=== PATIENT | female | born 1960 | race Hispanic/Latino ===

== ENCOUNTER 2017-08-20 04:51 | Emergency (ER) | payer OTHER ==
[~2017-08-20] VITALS: Ht 157.5 cm; Wt 108.9 kg
--- OUTSIDE RECORDS SUMMARY | 2017-08-20 04:54 | XMS REPORT | Summary of Care ---
Author Author Suzie Soto M.A. Unknown Address Unknown Phone Unavailable Care Team Providers [employer] Name Role Phone RAPHAEL Ramirez, NAWAF Unavailable Unavailable JESSY Ramirez, KIERRA Unavailable Unavailable Unavailable Unavailable Functional Status Name Dates Details Functional status health issues are not documented Status: Name Dates Details Cognitive status health issues are not documented Status: Problems Name Dates Details Musculoskeletal neck pain (723.1, M54.2) Status: Active Lipoma of left lower extremity (214.1, D17.24) Status: Active Osteoarthritis of left foot (715.97, M19.072) Status: Active Calcific Achilles tendinitis of left lower extremity (727.82, M65.28) Status: Active Osteoarthritis of both knees, unspecified osteoarthritis type (715.96, M17.0) Status: Active Strain of right rotator cuff capsule, initial encounter (840.4, S46.011A) Status: Active Iliotibial band syndrome of left side (728.89, M76.32) Status: Active 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 Quantity: 50 RAPHAEL M.D., NAWAF * Start : 28-Apr-2014 Active Meloxicam 7.5 MG Oral Tablet TAKE 1 TABLET DAILY WITH FOOD. * Quantity: 30 Refills: 1 RAPHAEL Jmaes, NAWAF * Start : 28-Apr-2014 Active Duexis 800-26.6 MG Oral Tablet TAKE 1 TABLET 3 TIMES DAILY * Quantity: 90 Refills: 0 JESSY Ramirez, KIERRA * Start : 25-Mar-2016 Active Duexis 800-26.6 MG Oral Tablet TAKE 1 TABLET 3 TIMES DAILY * Quantity: 90 Refills: 1 JESSY Ramirez, KIERRA * Start : 16-May-2016 Active Duexis 800-26.6 MG Oral Tablet TAKE 1 TABLET 3 TIMES DAILY * Quantity: 90 Refills: 1 JESSY Ramirez, KIERRA * Start : 06-Jan-2017 Active Vitamin D3 66572 UNIT Oral Tablet TAKE 1 TABLET WEEKLY * Quantity: 20 Refills: 2 JESSY Abraham.Chaz, KIERRA * Start : 06-Jan-2017 Active Meloxicam 15 MG Oral Tablet TAKE 1 TABLET DAILY. * Quantity: 30 Refills: 0 JESSY Ramirez, KIERRA * Start : 10-Jul-2017 Active Cyclobenzaprine HCl - 10 MG Oral Tablet TAKE 1 TABLET AT BEDTIME NEEDED. * Quantity: 30 Refills: 0 JESSY Ramirez, KIERRA * Start : 10-Jul-2017 Active Allergies and Adverse Reactions Name Dates Details No Known Drug Allergies (Allergy) Status: Active Past Medical History Name Dates Details History of arthritis (V13.4, Z87.39) Status: Resolved History of asthma (V12.69, Z87.09) Status: Resolved History of hypertension (V12.59, Z86.79) Status: Resolved Procedures Procedure Dates Details History of Gallbladder surgery Completed Immunization Name Dates Details Immunizations not documented Family History Name Dates Details Family history of Allergy (995.3, T78.40XA) Comments: Family History Status: Active Family history of asthma (V17.5, Z82.5) Comments: Family History Status: Active Family history of malignant neoplasm (V16.9, Z80.9) Comments: Family History Status: Active Family history of cardiac disorder (V17.49, Z82.49) Comments: Family History Status: Active Social History Name Dates Details - Status: Name Dates Details Never smoker Vital Signs Date Test Result Details No Known Vitals to report Results Date Description Value Details Results not documented Plan of Care Name Dates Details Planned Observations Planned Goals not documented Planned Encounters Appointment; KIERRA JIMÉNEZ M.D. On: 21-Aug-2017 9:45 Appointment; AUGUSTIN BELTRAN On: 24-Aug-2017 11:00 Instructions Name Dates Details Instructions not documented Encounters Appointment; KIERRA JIMÉNEZ M.D. Encounter Diagnosis: Problem not documented On: 22-Feb-2016 10:00 Appointment; KIERRA JIMÉNEZ M.D. Encounter Diagnosis: Problem not documented On: 07-Mar-2016 9:45 Appointment; KIERRA JIMÉNEZ M.D. Encounter Diagnosis: Problem not documented On: 16-May-2016 10:15 Appointment; KIERRA JIMÉNEZ M.D. Encounter Diagnosis: Problem not documented On: 13-Jun-2016 10:15 Appointment; KIERRA JIMÉNEZ M.D. Encounter Diagnosis: Problem not documented On: 01-Aug-2016 11:00 Appointment; KIERRA JIMÉNEZ M.D. Encounter Diagnosis: Problem not documented On: 06-Jan-2017 9:30 Appointment; KIERRA JIMÉNEZ M.D. Encounter Diagnosis: Problem not documented On: 13-Feb-2017 10:00 Appointment; DEBBIE LAM M.D. Encounter Diagnosis: Problem not documented On: 25-Apr-2017 15:30 Appointment; DEBBIE LAM M.D. Encounter Diagnosis: Problem not documented On: 09-May-2017 9:30 Appointment; JT KENYON Encounter Diagnosis: Problem not documented On: 30-Jun-2017 9:00 Appointment; JT KENYON Encounter Diagnosis: Problem not documented On: 30-Jun-2017 9:00 Appointment; KIERRA JIMÉNEZ M.D. Encounter Diagnosis: Problem not documented On: 10-Jul-2017 9:15 Appointment; KIERRA JIMÉNEZ M.D. Encounter Diagnosis: Problem not documented On: 21-Aug-2017 9:45
--- OUTSIDE RECORDS SUMMARY | 2017-08-20 04:54 | XMS REPORT | Summary of Care ---
Author Author [facility] [place] Organization [facility] [place] Address Unknown Phone Unavailable Encounter [facility] Encntr_katherin([facility]) [id number] Date(s): 03/04/16 - 03/04/16 [facility] [place] [address] [place] [phone] Discharge Disposition: Home or Self Care Attending Physician: Alice Kulkarni MD Vital Signs No data available for this section Problem List No data available for this section Allergies, Adverse Reactions, Alerts No data available for this section Medications No data available for this section Results No data available for this section Immunizations No data available for this section Procedures No data available for this section Social History No data available for this section Assessment and Plan No data available for this section
--- OUTSIDE RECORDS SUMMARY | 2017-08-20 04:54 | XMS REPORT | Summary of Care ---
Author Author [facility] Address Unknown Phone Unavailable Encounter [facility] [email or web address]([facility]) [id number] Date(s): 07/14/16 - 08/12/16 [facility] Discharge Disposition: Home or Self Care Attending [...]
--- OUTSIDE RECORDS SUMMARY | 2017-08-20 04:54 | XMS REPORT | Summary of Care ---
Author Author [facility] Address Unknown Phone Unavailable Encounter [facility] Encntr_katherin([facility]) [id number] Date(s): 02/24/17 - 03/25/17 [facility] Discharge Disposition: Home or Self Care Attending [...]
--- OUTSIDE RECORDS SUMMARY | 2017-08-20 04:54 | XMS REPORT | Summary of Care ---
Author Organization Unknown Address Unknown Phone Unavailable Encounter [facility] [email or web address]([facility]) [id number] Date(s): 04/30/14 - 05/29/14 [facility] Discharge Disposition: Home Physician Attending: Arvin Saucedo MD Vital Signs No data available for [...]
--- OUTSIDE RECORDS SUMMARY | 2017-08-20 04:54 | XMS REPORT | Summary of Care ---
Author Author [facility] Address Unknown Phone Unavailable Encounter [facility] [email or web address]([facility]) [id number] Date(s): 06/14/16 - 07/13/16 [facility] Discharge Disposition: Home or Self Care [...]
[2017-08-20 06:07] VITALS: BP 156/82
[2017-08-20] MEDS ORDERED: IBUPROFEN 400 MG TAB PO ONE (06:15)
== END 2017-08-20 06:17 | disposition home or self-care (01) ==
LOC: FSED 04:51
DX: S50.11XA Contusion of right forearm, initial encounter (principal); W01.0XXA Fall on same level from slipping, tripping and stumbling without subsequent striking against object, initial encounter; Y93.01 Activity, walking, marching and hiking; Y92.512 Supermarket, store or market as the place of occurrence of the external cause
CPT/HCPCS: 72040; 99283

== ENCOUNTER 2020-10-19 17:36 | Emergency (ER) | payer OTHER ==
[~2020-10-19] VITALS: Ht 157.5 cm; Wt 108.9 kg
[2020-10-19 19:02] VITALS: BP 166/92
== END 2020-10-19 19:04 | disposition home or self-care (01) ==
LOC: FSED 17:53
DX: K59.00 Constipation, unspecified (principal); K64.4 Residual hemorrhoidal skin tags; M54.5 Low back pain
CPT/HCPCS: 99283

== ENCOUNTER 2024-11-19 22:12 | Emergency (ER) | payer OTHER ==
[~2024-11-19] VITALS: Ht 152.4 cm; Wt 119.3 kg
[2024-11-20] MEDS ORDERED: HYDROCHLOROTHIA25 MG PO (01:12)
[2024-11-20 01:19] VITALS: PULSE 99; RESP 18; TEMP 98.2
[2024-11-20 01:20] VITALS: BP 111/72; PULSE 99; RESP 18; TEMP 98.2; O2SAT 97
== END 2024-11-20 01:33 | disposition home or self-care (01) ==
LOC: FSED 11-20 00:43
DX: R06.02 Shortness of breath (principal); I10 Essential (primary) hypertension; E66.9 Obesity, unspecified; R94.31 Abnormal electrocardiogram [ECG] [EKG]
CPT/HCPCS: 71046; 80048; 84484; 85025; 85379; 93005; 99284

== ENCOUNTER 2024-11-25 17:39 | Inpatient (IN) | payer OTHER ==
[~2024-11-25] VITALS: Ht 165.1 cm; Wt 117.0 kg
[~2024-11-25 17:39] MED LIST: HYDROCHLOROTHIA25 MG PO
[2024-11-25 17:50] VITALS: PULSE 108; RESP 20; TEMP 98.2
[2024-11-25] MEDS ORDERED: SODIUM CHLORIDE 0.9% 100 ML ONE (18:50)
[2024-11-25] MEDS ORDERED: IOPAMIDOL 370 MG/ML 100 ML INFUS..BTL INJ ONE (18:50)
[2024-11-25] MEDS: ONDANSETRON HCL INJ 2MG/ML 2ML 2 MG/ML VIAL IV STA ×2 (19:11→22:53)
[2024-11-25] MEDS: SODIUM CHLORIDE 0.9% 1000ML 1,000 ML IV ONE (19:11)
[2024-11-25] MEDS ORDERED: Morphine 4mg INJECTION 4 MG/ML INJ IV PRN (23:15)
[2024-11-26] VITALS (11 sets, daily range): BP systolic 122–169; BP diastolic 77–89; PULSE 80–110; RESP 16–20; TEMP 97.5–98.7; O2SAT 93–99
[2024-11-26] MEDS: SODIUM CHLORIDE 0.9% 1000ML 1,000 ML IV SCH (01:23)
[2024-11-26] MEDS ORDERED: MELATONIN 5 MG TABLET PO PRN (02:00)
[2024-11-26] MEDS ORDERED: LIDOCAINE 4% PATCH TP PRN (02:00)
[2024-11-26] MEDS ORDERED: BENZONATATE 100 MG CAP PO PRN (02:00)
[2024-11-26] MEDS ORDERED: ALBUTEROL/IPRATROPIUM 3 ML NEB NEB PRN (02:00)
[2024-11-26] MEDS ORDERED: HYDRALAZINE HCL 20 MG/ML VIAL IV PRN (02:00)
[2024-11-26] MEDS ORDERED: DIPHENHYDRAMINE HCL 25 MG CAP PO PRN (02:00)
[2024-11-26] MEDS ORDERED: SIMETHICONE 80 MG CHEW PO PRN (02:00)
[2024-11-26] MEDS ORDERED: DOCUSATE SODIUM 100 MG CAP PO PRN (02:00)
[2024-11-26] MEDS ORDERED: DEXTROSE 50% SYRINGE 50 ML IV PRN (02:00)
[2024-11-26 05:24] LABS: BASOPHILS % 1.1 % (0.0-1.0); EOSINOPHILS % 1.3 % (0.0-6.0); LYMPHOCYTES % 41.7 % (18.0-39.1); MONOCYTES % 10.5 % (4.4-11.3); NEUTROPHILS % 44.9 % (38.7-80.0); RED CELL DISTRIBUTION WIDTH 14.8 % (11.7-14.4)
[2024-11-26 05:58] LABS: EST GLOMERULAR FILTRATION RATE 52.0 ML/MIN (>=60)
[2024-11-26] MEDS: PANTOPRAZOLE SOD 40 MG TABEC PO SCH ×2 (09:24→18:25)
[2024-11-26] MEDS: ONDANSETRON HCL INJ 2MG/ML 2ML 2 MG/ML VIAL IV PRN (12:57)
[2024-11-26] MEDS: FUROSEMIDE INJ 10 MG/ML 4 ML VIAL IV SCH (13:58)
[2024-11-26] MEDS: POTASSIUM CHLORIDE 20 MEQ TAB CR PO STA ×2 (13:59→18:24)
[2024-11-26] MEDS: METOPROLOL SUCCINATE 50 MG TAB XL PO SCH (13:59)
[2024-11-26] MEDS: ENOXAPARIN SOD INJ 40 MG/0.4 ML SYR SC SCH (18:34)
[2024-11-27] VITALS (8 sets, daily range): BP systolic 114–141; BP diastolic 65–89; PULSE 59–85; RESP 18–20; TEMP 97.5–98.4; O2SAT 94–100
[2024-11-27 05:13] LABS: BASOPHILS % 1.2 % (0.0-1.0); EOSINOPHILS % 2.5 % (0.0-6.0); LYMPHOCYTES % 40.7 % (18.0-39.1); MONOCYTES % 11.0 % (4.4-11.3); NEUTROPHILS % 44.2 % (38.7-80.0); RED CELL DISTRIBUTION WIDTH 14.7 % (11.7-14.4)
[2024-11-27 05:52] LABS: EST GLOMERULAR FILTRATION RATE 48.0 ML/MIN (>=60)
[2024-11-28] VITALS (9 sets, daily range): BP systolic 107–138; BP diastolic 49–83; PULSE 56–74; RESP 16–20; TEMP 97.3–98.5; O2SAT 96–100
[2024-11-28 06:00] LABS: BASOPHILS % 1.1 % (0.0-1.0); EOSINOPHILS % 2.9 % (0.0-6.0); LYMPHOCYTES % 48.2 % (18.0-39.1); MONOCYTES % 9.0 % (4.4-11.3); NEUTROPHILS % 38.0 % (38.7-80.0); RED CELL DISTRIBUTION WIDTH 14.5 % (11.7-14.4)
[2024-11-28 06:23] LABS: EST GLOMERULAR FILTRATION RATE 39.0 ML/MIN (>=60)
[2024-11-28] MEDS: POTASSIUM CHLORIDE 20 MEQ TAB CR PO PRN (06:58)
[2024-11-28] MEDS: ACETAMINOPHEN 325 MG TAB PO PRN (09:28)
[2024-11-28] MEDS: POTASSIUM CHLORIDE 20 MEQ TAB CR PO STA ×2 (11:56→13:13)
[2024-11-28] MEDS: MAGNESIUM SULFATE 2GM/50ML 50 ML IV ONE (20:40)
[2024-11-29] VITALS (8 sets, daily range): BP systolic 115–140; BP diastolic 57–82; PULSE 65–76; RESP 16–20; TEMP 97.3–98.3; O2SAT 97–99
[2024-11-29] MEDS: SODIUM CHLORIDE 0.9% 500ML 500 ML IV ONE (03:08)
[2024-11-29 06:08] LABS: EST GLOMERULAR FILTRATION RATE 44.0 ML/MIN (>=60)
[2024-11-29] MEDS ORDERED: LIDOCAINE HCL 2% LOCAL INJ 5 ML SDV VIAL INJ ONE (13:05)
[2024-11-29] MEDS ORDERED: PROPOFOL IV EMULSION 10 MG/ML 20 ML VIAL ONE ×3 (13:05→13:40)
[2024-11-29] MEDS: PANTOPRAZOLE SOD 40 MG TABEC PO SCH (15:38)
[2024-11-29] MEDS: ONDANSETRON HCL 4 MG ORAL DISINTEGRATING TAB PO PRN (15:38)
[2024-11-29] MEDS: ONDANSETRON HCL INJ 2MG/ML 2ML 2 MG/ML VIAL ONE (15:39)
[2024-11-29] MEDS: Morphine 4mg INJECTION 4 MG/ML INJ IV PRN (15:39)
[2024-11-29] MEDS ORDERED: PROTONIX40 MG/ML PO (19:02)
[2024-11-29] MEDS ORDERED: TOPROL XL50 MG PO (19:02)
[2024-11-29] MEDS ORDERED: POTASSIUM CHLORIDE 20 MEQ TAB CR PO ONE (19:40)
== END 2024-11-29 20:20 | disposition home or self-care (01) | DRG 206 ==
LOC: FSED 18:03 → ERHOLD 23:14 → MED/SURG2 11-26 00:53
PROVIDERS: ADMIT Internal Medicine; ATTEND Internal Medicine
PROC: 0DB78ZX Excision of Stomach, Pylorus, Via Natural or Artificial Opening Endoscopic, Diagnostic (ICD-10-PCS; 2024-11-29)
PROC: 0DB68ZX Excision of Stomach, Via Natural or Artificial Opening Endoscopic, Diagnostic (ICD-10-PCS; principal; 2024-11-29 13:09)
DX: M94.0 Chondrocostal junction syndrome [Tietze] (principal); Z68.41 Body mass index [BMI] 40.0-44.9, adult; R09.02 Hypoxemia; E66.01 Morbid (severe) obesity due to excess calories; E87.6 Hypokalemia; R00.0 Tachycardia, unspecified; R07.89 Other chest pain; R11.2 Nausea with vomiting, unspecified; R06.02 Shortness of breath; R53.81 Other malaise; K29.70 Gastritis, unspecified, without bleeding; K44.9 Diaphragmatic hernia without obstruction or gangrene; K20.90 Esophagitis, unspecified without bleeding; I10 Essential (primary) hypertension; I25.10 Atherosclerotic heart disease of native coronary artery without angina pectoris; J44.9 Chronic obstructive pulmonary disease, unspecified; G47.33 Obstructive sleep apnea (adult) (pediatric); R00.2 Palpitations; K76.0 Fatty (change of) liver, not elsewhere classified; Z11.52 Encounter for screening for COVID-19; Z90.49 Acquired absence of other specified parts of digestive tract; Z95.0 Presence of cardiac pacemaker
CPT/HCPCS: 36415; 43239; 71260; 74177; 80048; 80076; 83036; 83735; 83880; 84443; 84484; 85025; 88305; 88312; 93005; 93306; 93970; 94799; 99284; J1650; J1938; J2003; J2270; J2405; J2470; J2543; J3475; J7030; J7050; Q0162; Q9967